=== PATIENT | male | born 1965 | race Caucasian/White ===

== ENCOUNTER 2019-09-03 19:10 | Observation (INO) | payer OTHER, SELFPAY ==
[2019-09-03] VITALS (7 sets, daily range): BP systolic 121–132; BP diastolic 81–94; PULSE 52–72; RESP 14–99; TEMP 36.4–36.6; O2SAT 96–99; BMI 26.5; BMI 26.8
--- NOTE | 2019-09-03 19:45 | EKG12_ITS ---
Test Reason : CP ADMIT Blood Pressure : / mmHG Vent. Rate : 050 BPM Atrial Rate : 050 BPM P-R Int : 186 ms QRS Dur : 084 ms QT Int : 450 ms P-R-T Axes : 043 -12 001 degrees QTc Int : 410 ms Sinus bradycardia Otherwise normal ECG No previous ECGs available Confirmed by THOM CORDOVA, GAURAV ([id number]), publishing editor NATHANIEL PRECIADO ([id number] on 09/13/2019 1:02:52 PM Referred By: DR RHODES Confirmed By:STEWART TOMAS MD
--- NOTE | 2019-09-03 19:45 | RAD_ITS ---
STUDY: X-RAY CHEST REASON FOR EXAM: Male, 54 years old. Chest pain x2 days TECHNIQUE: Single AP portable view of the chest. COMPARISON: None. FINDINGS: The lungs are clear and expanded. There is no demonstrated pleural abnormality. Normal size heart. Normal mediastinum and kirill. Normal visualized pulmonary arteries. Normal visualized aortic arch and descending thoracic aorta. Normal visualized thoracic spine. Normal visualized ribs, clavicles, and shoulders. There is no demonstrated abnormality of the visualized soft tissue structures of the upper abdomen. RAD/Chest 1 View (Portable) IMPRESSION: Normal x-ray examination of the chest. Electronically Signed: George Morales DO at 20:18 EST Tel , Service support ,
--- NOTE | 2019-09-03 19:46 | ED.DCSUM_ITS ---
- ER Visit Summary Date of Service: 09/03/19 Chief Complaint: Chest pain History of Present Illness: The patient is a 54 M presenting with chest pain. Patient states this has been intermittent since yesterday. He has noticed that it has been worsened with exertion. He states he noticed it when working out and when carrying in firewood. He has left-sided chest pain associated with diaphoresis, shortness of breath, lightheadedness. He denies CAD risk factors. Denies PE/DVT risk factors. He is not a smoker. Physical Examination: Vitals are stable. Patient is afebrile. Alert no acute distress. HEENT exam is unremarkable. Neck is supple. Lungs are clear and equal bilaterally. Heart is regular rate and rhythm. Abdomen is soft nontender nondistended. Extremities are unremarkable. Skin is warm and dry. No focal neurologic deficit. Remainder of exam is unremarkable. Emergency Department Course and Treatment: Patient was given aspirin on arrival. EKG is sinus rhythm rate of 64 with no acute ischemic changes. Chest x-ray shows no acute process. CBC, chemistries unremarkable. Troponin is negative. On reevaluation patient is chest pain-free. Discussed with the hospitalist for observation. Disposition: Observation Impression: Chest pain This note was generated with [employer] dictation software. It may contain incorrect words, spelling, and punctuation that were not noted in review of the chart prior to signing ED Disposition - Plan for ED Patient: Referrals: NOT,DEFINED [NON-STAFF] -
[2019-09-03 20:14] LABS: Absolute Lymphocyte Count 2.68 X10^3/uL (0.83-4.51); Absolute Neutrophil Count 3.1 X10^3/uL (2.0-7.7); Basophil# 0.05 X10^3/uL; Basophil% 0.8 % (0-1); Eosinophil# 0.16 X10^3/uL; Eosinophils% 2.4 % (0-5); Hematocrit 45.4 % (40-54); Hemoglobin 16.1 g/dL (13.0-16.5); Lymphocyte # 2.68 X10^3/ul (4.0); Mean Corp Hgb Conc 35.5 g/dL (32-36); Mean Corpuscular Hgb 30.7 pg (27.0-32.0); Mean Corpuscular Volume 86.5 fL (80-94); Monocyte# 0.54 X10^3/uL; Monocyte% 8.3 % (0-10); NRBC Flagged by Analyzer 0 % (0-5); Neutrophil % 47.3 % (47-70); Platelet Count 204 K/mm3 (150-450); RBC Distribution Width CV 12.2 % (11.6-14.6); RBC Distribution Width SD 38.6 fl (35.1-43.9); Red Blood Count 5.25 M/mm3 (4.6-6.2); White Blood Count 6.5 K/mm3 (4.4-11.0)
[2019-09-03] MEDS: Aspirin 81 MG TAB.CHEW 324 MG PO (20:24)
[2019-09-03 20:27] LABS: Anion Gap 5 (5-15); BUN 14 mg/dL (7-18); BUN/Creat Ratio 11.1 RATIO (10-20); Calcium,Total 8.9 mg/dL (8.5-10.1); Chloride 107 mmol/L (98-107); Creatinine, Serum 1.26 mg/dL (0.70-1.30); EST Glomerular Filtration Rate 64 mL/min (>60); Est Glom Filt Rate - Afr Amer 77 mL/min (>60); Estimated Creatinine Clearance 70.81 ml/min; Glucose 80 mg/dL (74-106); Potassium 3.4 mmol/L (3.5-5.1); Sodium Level 143 mmol/L (136-145)
--- NOTE | 2019-09-03 20:44 | PCM.HP.STD ---
Problem List (1) Chest pain Status: Acute History of Present Illness Date of Admission: 09/03/19 Chief Complaint: chest pain The patient is a 54 year old M previously healthy male who presented to emergency department with 1 day history of episodic left-sided chest pain that radiates to under his left arm and also to his left arm. His chest pain lasted about 1 second and then returns. His pain started while driving from [place]. He denies any ameliorating factors. His pain worsens when he exerts himself. Associated with symptoms is lightheadedness; clamminess and diaphoresis. Also he has some shortness of breath. He rated his pain as 7 out of 10. He described his pain as heaviness. The patient is athletic and typically he can use the treadmill and elliptical for about 30 minutes with no symptoms. He reported that previously he was diagnosed with mitral valve regurgitation but a stress test about 10 years ago showed resolution. Past Medical History Medical History: Medical History (Last Updated 09/03/19 @ 21:09 by Tee Sheffield MD) Mitral valve regurgitation I34.0 Allergies No Known Allergies Allergy (Verified 09/03/19 19:10) Home Medications: Ambulatory Orders Medication Instructions Recorded NK 09/03/19 Surgical History: tonsillectomy Lives: With Family Smoking Status: Never smoker Tobacco Use: Non-smoker Alcohol: Occasional - *Family History Paternal History Items: Cancer - His father has stage IV prostate cancer Maternal History Items: Heart Disease - Mother had atrial fibrillation Review of Systems Constitutional: Denies: Chills, Fever, Weight Change HEENT: Denies: Head Aches, Sinus Congestion, Sinus Drainage Cardiovascular: Reports: Chest Pain, Heaviness, Light Headedness. Denies: Palpitations Respiratory: Reports: Shortness of Breath. Denies: Cough Gastrointestinal: Denies: Abdominal Pain, Nausea, Vomiting Genitourinary: Denies: Dysuria Musculoskeletal: Reports: Arm Pain. Denies: Joint Pain, Joint Tenderness Skin: Denies: Rash, Wounds Neurological: Denies: Numbness, Tingling, Focal weakness Psychiatric: Denies: Anxiety, Depression, Homicidal Ideations, Suicidal Ideations Hematologic/ Lymphatic: Denies: Easy Bruising, Easy Bleeding VTE Information - Inpt Only VTE Present on Admission: No VTE Mechan Device Prophylaxis: SCD's VTE Pharm Prophylaxis ordered?: No Patient Problems: Active and Suspected Problems (Last Updated 09/03/19 @ 21:09 by Tee Sheffield MD) Chest pain (Acute) - Physical Exam Vitals/I&O's: Vital Signs Temp Pulse Resp BP Pulse Ox 97.5 F L 72 99 H 121/81 H 96 09/03/19 19:10 09/03/19 20:10 09/03/19 20:10 09/03/19 20:10 09/03/19 20:10 Oxygen Flow Rate (L/min) 2 Oxygen Delivery Method Nasal Cannula Weight: 83.915 kg Body Mass Index (BMI) 26.5 General: Alert, Oriented x3, Cooperative HEENT: Atraumatic, PERRLA, EOMI, Normocephalic Neck: Supple, No JVD, Negative Carotid Bruits Lungs: Clear to auscultation, Normal air movement Cardiovascular: Regular rate, No murmurs Abdomen: Bowel Sounds Present, Soft, Non Tender Extremities: No edema, Capillary Refill Less than 3 Seconds Skin: No rashes, No breakdown Musculoskeletal: No Tenderness to Palpation of Joints or Extremities Neurological: Cranial nerves II-XII grossly intact Psych/Mental Status: Normal Affect, Appropriate Laboratory Results 09/03/19 19:20: WBC 6.5, RBC 5.25, Hgb 16.1, Hct 45.4, MCV 86.5, MCH 30.7, MCHC 35.5, RDW Std Deviation 38.6, RDW Coeff of Mireya 12.2, Plt Count 204, MPV 9.0, Immature Gran % (Auto) 0.200, Neut % (Auto) 47.3, Lymph % (Auto) 41.0, [place] % (Auto) 8.3, Eos % (Auto) 2.4, Baso % (Auto) 0.8, Absolute Neuts (auto) 3.1, Absolute Lymphs (auto) 2.68, Nucleated RBC % 0 09/03/19 19:20: Sodium 143, Potassium 3.4 L, Chloride 107, Carbon Dioxide 31.0, Anion Gap 5, BUN 14, Creatinine 1.26, Estim Creat Clear Calc 70.81, Est GFR (MDRD) Af Amer 77, Est GFR (MDRD) Non-Af 64, BUN/Creatinine Ratio 11.1, Glucose 80, Calcium 8.9, Troponin I < 0.015 Assessment/Plan All Active Problems (Last Updated 09/03/19 @ 21:09 by Tee Sheffield MD) Chest pain (Acute) The patient is a 54 year old M previously healthy male who presented to emergency department with 1 day history of episodic left-sided chest pain. Chest pain Placed on a monitored bed at PCU CXR independently reviewed confirms no acute cardiopulmonary process. EKG independently reviewed confirms sinus rhythm Aspirin 324 mg at the emergency department. ASA 81 mg p.o. daily. High intensity statin x1. SL NTG 0.4 mg prn as needed for chest pain We will check lipid panel. Serial cardiac enzymes Stat EKG as needed for chest pain Treadmill stress test in the AM if the cardiac enzymes are negative Hypokalemia On presentation potassium was 3.4. Will replace. Check magnesium. Trend BMP. DVT prophylaxis SCD while pending further work-up for chest pain. Code Visit OBSV E&M: 56931 Initial observation care L2
--- NOTE | 2019-09-03 21:51 | EKG12_ITS ---
Test Reason : EBS Blood Pressure : / mmHG Vent. Rate : 055 BPM Atrial Rate : 055 BPM P-R Int : 188 ms QRS Dur : 088 ms QT Int : 454 ms P-R-T Axes : 056 007 015 degrees QTc Int : 434 ms Sinus bradycardia Otherwise normal ECG When compared with ECG of 03-SEP-2019 21:51, MANUAL COMPARISON REQUIRED, DATA IS UNCONFIRMED Confirmed by DIYA CORDOVA, SOY ([id number]), photo editor STEVENSON KEITH ([id number]) on 09/08/2019 11:41:33 AM Referred By: DR RHODES Confirmed By:SOY KEANE MD
[2019-09-03 22:45] LABS: Magnesium 2.2 mg/dL (1.6-2.6)
[2019-09-04 03:00] VITALS: PULSE 55
[2019-09-04 03:45] VITALS: BP 121/80; PULSE 49; RESP 15; TEMP 36.7; O2SAT 100
--- NOTE | 2019-09-04 05:55 | EKG12_ITS ---
Test Reason : CHEST PAIN Blood Pressure : / mmHG Vent. Rate : 064 BPM Atrial Rate : 064 BPM P-R Int : 176 ms QRS Dur : 090 ms QT Int : 424 ms P-R-T Axes : 048 -14 010 degrees QTc Int : 437 ms Normal sinus rhythm Normal ECG Confirmed by MARY DU ([id number]), graphics editor DAVIDE RAMOS ([id number]) on 09/08/2019 1:06:50 PM Referred By: MIRTHA Confirmed By:MARY DU
[2019-09-04] MEDS: Aspirin E.C. 81 MG Tablet PO (06:16)
[2019-09-04 06:46] VITALS: PULSE 60
[2019-09-04 09:30] VITALS: BP 114/65; PULSE 60; RESP 14; TEMP 36.5; O2SAT 95
--- NOTE | 2019-09-04 10:45 | STRESSREP ---
Stress Test Report Date: 09-04-19 Procedure: Exercise tolerance test/imaging study Indications: Chest pain Consent: Per the patient Procedure: The patient exercised on a Jose protocol for 12 minutes and 30 seconds completing Stage IV and 30 seconds of Stage V achieving a peak heart rate of 162 bpm (96 % predicted maximal heart rate) with a peak blood pressure 184/76 mmHg and a peak MET capacity of 14 METs. The baseline ECG demonstrated sinus bradycardia. The peak exercise ECG demonstrated no obvious ECG changes. There were no cardiac dysrhythmias pretest, during exercise, or recovery. The functional capacity was considered good. There was no complaint of chest discomfort during exercise or recovery. The examination was discontinued secondary to dyspnea. Impression: 1. Technically adequate (percent predicted maximal heart rate greater than 85%) exercise tolerance test 2. Negative (adequate) ECG exercise tolerance test 3. There were no cardiac dysrhythmias pretest, during exercise, or recovery 4. Nuclear images pending Myocardial perfusion imaging study: Technique: The patient was injected with 12.0 mCi of technetium 99m Cardiolite and subsequently rest SPECT Cardiolite nuclear imaging was obtained in the horizontal long, vertical long, and short axis views. The patient exercised on a Jose protocol for 12 minutes and 30 seconds completing Stage IV and 30 seconds of Stage V achieving a peak heart rate of 162 bpm (96 % predicted maximal heart rate) with a peak blood pressure 184/76 mmHg and a peak MET capacity of 14 METs. The patient was injected with 36.0 mCi of technetium 99m Cardiolite and subsequently stress SPECT Cardiolite nuclear imaging was obtained in the horizontal long, vertical long, and short axis views. A gated Cardiolite study at peak stress was obtained. Interpretation: Rest and stress SPECT Cardiolite nuclear imaging status post realignment, normalization, and attenuation correction, demonstrates the appearance of relative uniform tracer uptake and myocardial perfusion appearing within normal limits. There is end systolic thickening and brightening. The gated Cardiolite study demonstrates myocardial thickening and inward wall motion. The reported LVEF is 70 %. Impression: 1. Rest and stress SPECT Cardiolite nuclear imaging demonstrate relative uniform tracer uptake and myocardial perfusion appearing within normal limits. 2. The gated Cardiolite study reports an LVEF of 70 %. This note was generated with [employer] software. It may contain incorrect words, spelling, and punctuation that were not noted in checking the note before signing.
[2019-09-04 11:04] LABS: Anion Gap 6 (5-15); BUN 12 mg/dL (7-18); BUN/Creat Ratio 9.7 RATIO (10-20); Calcium,Total 8.2 mg/dL (8.5-10.1); Chloride 108 mmol/L (98-107); Cholesterol 156 mg/dL (200); Creatinine, Serum 1.24 mg/dL (0.70-1.30); EST Glomerular Filtration Rate 65 mL/min (>60); Est Glom Filt Rate - Afr Amer 79 mL/min (>60); Estimated Creatinine Clearance 71.95 ml/min; Glucose 144 mg/dL (74-106); High Density Lipoprotein 45 mg/dL; Potassium 3.8 mmol/L (3.5-5.1); Sodium Level 139 mmol/L (136-145); Triglycerides 84 mg/dL; Very Low Density Lipoprotein 17 mg/dL (5-40)
[2019-09-04 11:15] VITALS: O2SAT 94
--- NOTE | 2019-09-04 11:48 | DCINST_ITS ---
- Discharge Diagnoses Current Active Problems: Current Active and Chronic Problems (Last Updated 09/03/19 @ 21:09 by Tee Sheffield MD) Chest pain (Acute) Reason(s) for Visit for Discharge Instructions: Chest pain You will use the following diet at home:: Cardiac Your food should be the consistency of: Regular Your liquids should be the consistency of: Regular/Thin Discharge Activity: Return to Normal Activity Additional Instructions: Follow-up with your primary care doctor within 1-2 weeks Allergies/Adverse Reactions: Allergies No Known Allergies Allergy (Verified 09/03/19 19:10) Medications to take at Discharge NK 09/03/19 Primary Care Physician: NOT,DEFINED [NON-STAFF] - Please follow up with your Primary Care Physician in: within 1-2 weeks Test Results: Test results from this visit will be discussed in further detail at your follow- up appointment, if applicable. Proposed Discharge Date: 09/04/19
--- NOTE | 2019-09-04 14:35 | DS.PCM_ITS ---
Discharge Date and Diagnosis Date of Admission: 09/03/19 Date of Discharge: 09/04/19 - Primary Discharge Diagnosis Chest pain Hospital Course and Treatment Imaging Results: 09/04/19 21:51 Nuclear Stress Test - Treadmil [NM] Routine Clinical Impression(s) from Imaging Studies Chest X-Ray 09/03/19 19:45 IMPRESSION: Normal x-ray examination of the chest. Electronically Signed: George Morales DO at 20:18 EST Tel , Service support , None Operations: None Procedures: Stress test Summary of Care Provided: The patient is a 54 year old M no past significant medical history who comes in with a one-day history of left-sided chest pain that started from his left l ateral chest wall and radiated to his left arm. Pain was intermittent and started while he was driving. It appeared to be worse when he exerted himself and did yard work. It was associated with lightheadedness, clamminess and diaphoresis as well as shortness of breath. His EKG was unremarkable. Troponins were negative. He went a nuclear stress test that was negative. His potassium was 3.4 on admission that was replaced. Subjective: On the day of discharge, patient was seen and examined. He denied any chest pain, dizziness, palpitations. Stress test was negative. - Physical Exam Vitals/I&O's: Vital Signs Temp Pulse Resp BP Pulse Ox 97.7 F L 60 14 114/65 94 09/04/19 09:30 09/04/19 09:30 09/04/19 09:30 09/04/19 09:30 09/04/19 11:15 Oxygen Flow Rate (L/min) 2 Oxygen Delivery Method Room Air Weight: 86 kg Body Mass Index (BMI) 26.8 Intake and Output for Last 24 Hours 09/02/19 09/03/19 09/04/19 23:59 23:59 23:59 Intake Total 590 / 590 Balance 590 / 590 General: Alert, Oriented x3, Cooperative, No apparent distress HEENT: Atraumatic, PERRLA, EOMI, Normocephalic Oral: Moist Mucosa Neck: Supple Lungs: Clear to auscultation, Normal air movement Cardiovascular: Regular rate, Regular Rhythm, Normal S1, Normal S2, No murmurs Abdomen: Bowel Sounds Present, Soft, Non Tender, Non-Distended, No Hepato- splenomegaly Extremities: No edema Skin: No rashes Musculoskeletal: No Tenderness to Palpation of Joints or Extremities Lymphatic: No Cervical, Supraclavicular, or Inguinal Adenopathy Neurological: Cranial nerves II-XII grossly intact Psych/Mental Status: Normal Affect, Appropriate Laboratory Results 09/03/19 19:20: WBC 6.5, RBC 5.25, Hgb 16.1, Hct 45.4, MCV 86.5, MCH 30.7, MCHC 35.5, RDW Std Deviation 38.6, RDW Coeff of Mireya 12.2, Plt Count 204, MPV 9.0, Immature Gran % (Auto) 0.200, Neut % (Auto) 47.3, Lymph % (Auto) 41.0, [place] % (Auto) 8.3, Eos % (Auto) 2.4, Baso % (Auto) 0.8, Absolute Neuts (auto) 3.1, Absolute Lymphs (auto) 2.68, Nucleated RBC % 0 09/03/19 19:20: Sodium 143, Potassium 3.4 L, Chloride 107, Carbon Dioxide 31.0, Anion Gap 5, BUN 14, Creatinine 1.26, Estim Creat Clear Calc 70.81, Est GFR (MDRD) Af Amer 77, Est GFR (MDRD) Non-Af 64, BUN/Creatinine Ratio 11.1, Glucose 80, Calcium 8.9, Troponin I < 0.015 09/03/19 22:10: Magnesium 2.2, Troponin I < 0.015 09/04/19 01:39: Troponin I < 0.015 09/04/19 09:56: Sodium 139, Potassium 3.8, Chloride 108 H, Carbon Dioxide 25.0, Anion Gap 6, BUN 12, Creatinine 1.24, Estim Creat Clear Calc 71.95, Est GFR (MDRD) Af Amer 79, Est GFR (MDRD) Non-Af 65, BUN/Creatinine Ratio 9.7 L, Glucose 144 H, Calcium 8.2 L, Triglycerides 84, Cholesterol 156, LDL Cholesterol 94, VLDL Cholesterol 17, HDL Cholesterol 45 Discharge Diet: No Restrictions Discharge Activity: Return to Normal Activity Home Medications: Medications to take at Discharge NK 09/03/19 Primary Care Physician: NOT,DEFINED [NON-STAFF] - Please follow up with your Primary Care Physician in: within 1-2 weeks Disposition: Home Minutes spent on discharge:: 35 Patient Condition:: Stable Medical Necessity - Tobacco Use Smoking Status: Never smoker Tobacco Use: Non-smoker Meaningful Use Info Meaningful Use Diagnoses (Choose all that apply): None applicable Code Visit OBSV E&M: 17953 Observation care discharge
== END 2019-09-04 11:47 | disposition home or self-care (01) ==
LOC: ED 19:54 → PCU 21:05
PROVIDERS: Admitting Provider Hospitalist; Emergency Provider Emergency Medicine; Visit Provider Internal Medicine
DX: R07.89 Other chest pain (principal); R42 Dizziness and giddiness; R06.02 Shortness of breath; E87.6 Hypokalemia; R00.1 Bradycardia, unspecified
CPT/HCPCS: 36415; 71045; 78452; 80048; 80061; 83735; 84484; 85025; 93005; 93017; 99218; 99285; A9500; A4216; G0378